=== PATIENT | female | born 1950 | race Hispanic/Latino ===

== ENCOUNTER → 2019-04-20 | Outpatient (CLI) | payer MEDICARE, OTHER ==
[2019-04-20 13:12] LABS: CREATININE 0.8 mg/dL (0.5-1.5)
== END | disposition home or self-care (01) ==
LOC: LAB 11:59
PROVIDERS: ATTEND Surgery
DX: R10.9 Unspecified abdominal pain (principal)
CPT/HCPCS: 36415; 82565; 84520

== ENCOUNTER → 2019-04-28 | Outpatient (CLI) | payer MEDICARE, OTHER ==
[~2019-04-28] MED LIST: ASPI-555 PO; ATOR40TA71 PO; FURO20TA4 PO; IOHEXOL-350 75 ML VIAL IV ONE; LEVO100T12 PO; LISI10TA7 PO; LORA10CA9 PO; LUBI24CA2 PO; METF-444 PO; METO-408 PO; OMEP40CA37 PO
== END | disposition home or self-care (01) ==
LOC: RAH 09:49
PROVIDERS: ATTEND Surgery
DX: K44.9 Diaphragmatic hernia without obstruction or gangrene (principal); Z90.49 Acquired absence of other specified parts of digestive tract; Z90.710 Acquired absence of both cervix and uterus
CPT/HCPCS: 74177; Q9967

== ENCOUNTER 2019-05-08 07:39 | Day surgery (SDC) | payer OTHER ==
[2019-05-08] VITALS (12 sets, daily range): BP systolic 100–110; BP diastolic 58–80
[~2019-05-08] VITALS: Ht 152.4 cm; Wt 97.1 kg
[2019-05-08] MEDS ORDERED: SODIUM CHLORIDE 0.9% 1000ML 1,000 ML IV ONE (08:57)
[2019-05-08] MEDS ORDERED: LISI10TA7 PO (10:32)
[2019-05-08] MEDS ORDERED: LUBI24CA2 PO (10:32)
[2019-05-08] MEDS ORDERED: FURO20TA4 PO (10:32)
[2019-05-08] MEDS ORDERED: LEVO100T12 PO (10:32)
[2019-05-08] MEDS ORDERED: LORA10CA9 PO (10:32)
[2019-05-08] MEDS ORDERED: ASPI-555 PO (10:32)
[2019-05-08] MEDS ORDERED: OMEP40CA37 PO (10:32)
[2019-05-08] MEDS ORDERED: METO-408 PO (10:32)
[2019-05-08] MEDS ORDERED: ATOR40TA71 PO (10:32)
[2019-05-08] MEDS ORDERED: METF-444 PO (10:32)
[2019-05-08] MEDS ORDERED: PROPOFOL 10 MG/ML 20ML VIAL IV ONE ×3 (12:28→12:42)
[2019-05-08] MEDS ORDERED: LIDOCAINE HCL 1% 20 ML VIAL ONE (12:28)
[2019-05-08] MEDS ORDERED: EPHEDRINE SULFATE 50 MG/ML AMPULE ONE (12:48)
--- NOTE | 2019-05-08 13:15 | NUR ---
assess pt was complaining of abd pain, pt screaming " i have stomach pain". pt was releasing gas as she was screaming. 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 (per her request. ). patient started passing more gas. daughter at bedside. stated she needed to leave for an appointment and stated she needed to take her mom home. pt appeared lethargic after sitting on side of bed for about 1 minute. . vs stable. informed daughter that patient couldn't go home lethargic and screaming in pain. Daughter seemed un interested with our concerns. Daughter insisted to get patient out of bed . patient was sitting on side of bed and insisted to get up ,she threw herself on nurse almost hitting the floor. Patient was quickly assited back to bed with other nursing assistance help. Dr. Curiel notified . daughter was at bedside. Dr. Curiel stated he will come inperson to evaluate patient before letting her go home. patient was assisted back to stretcher to lay down. vs stable when she was lying in bed. Patient continued stating " i have abd pain".
--- NOTE | 2019-05-08 13:40 | NUR ---
md dr. ruiz at bedside evaluated patient. patient seemed more relax. She stated "releasing Gas helped her feel better". Patient fully awake and alert, daughter at bedside. Dr. Ruiz stated patient can be discharge home with daughter.
--- NOTE | 2019-05-08 13:56 | NUR ---
dc pt dc home via wc, no distress noted. accompanied by daughter. all dc instructions and follow up appointment where given already to daughter. patient appeared fully awake .
== END 2019-05-08 13:56 | disposition home or self-care (01) ==
LOC: ENDO 07:39 → DAH 07:39 → ENDO 13:56
PROVIDERS: ATTEND Surgery
DX: Z12.11 Encounter for screening for malignant neoplasm of colon (principal); I10 Essential (primary) hypertension; E11.9 Type 2 diabetes mellitus without complications; Z79.82 Long term (current) use of aspirin; Z79.84 Long term (current) use of oral hypoglycemic drugs; Z79.899 Other long term (current) drug therapy; E78.5 Hyperlipidemia, unspecified; Z90.49 Acquired absence of other specified parts of digestive tract; Z90.710 Acquired absence of both cervix and uterus; Z98.890 Other specified postprocedural states
CPT/HCPCS: 82948 ×2; 93005; A4606; G0121; J2704 ×3; J3490; J7030; 45378

== ENCOUNTER → 2019-06-25 | Outpatient (CLI) | payer OTHER ==
[~2019-06-25] MED LIST changes: -IOHEXOL-350 75 ML VIAL IV ONE
== END | disposition home or self-care (01) ==
LOC: SHCH 09:04
PROVIDERS: ATTEND Internal Medicine Cardiovascular Disease
DX: I20.9 Angina pectoris, unspecified (principal)
CPT/HCPCS: 93306